=== PATIENT | male | born 1970 | race Two or more races ===

== ENCOUNTER 2024-01-28 12:42 | Emergency (ER) | payer OTHER ==
[~2024-01-28] VITALS: Ht 180.3 cm; Wt 88.5 kg
[2024-01-28] MEDS ORDERED: ROSUVASTATIN CAL5 MG PO (13:11)
[2024-01-28] MEDS ORDERED: LIPITOR40 M1 PO (13:12)
[2024-01-28] MEDS ORDERED: LISINOPRIL20 MG PO (13:13)
[2024-01-28 14:21] LABS: HEMATOCRIT 42.4 % (39.0-48.0); HEMOGLOBIN 14.4 g/dL (13-16.00); MEAN CELL VOLUME 92.3 fL (80.0-100.00); MEAN CORPUSCULAR HEMOGLOBIN 31.4 pg (27.00-32.0); PLATELET COUNT 144 K/uL (150-450); RED CELL DISTRIBUTION WIDTH 12.9 % (11.5-14.5)
[2024-01-28 14:48] LABS: CALCIUM 9.3 mg/dL (8.5-10.1); CREATININE SERUM 1.07 mg/dL (0.70-1.30); GFR 72.29; POTASSIUM 4.33 mEq/L (3.5-5.1)
[2024-01-28 16:18] LABS: URINE APPEARANCE Clear; URINE BILIRRUBIN Negative (NEGATIVE); URINE BLOOD Large; URINE COLOR Yellow; URINE GLUCOSE Negative (NEGATIVE); URINE KETONE Trace (NEGATIVE); URINE LEUKOCYTE Negative; URINE NITRATE Negative; URINE PROTEIN Negative (NEGATIVE); URINE UROBILINOGEN 0.2 E.U./dl
[2024-01-28 16:25] LABS: URINE EPITHELIAL CELLS 2.6 uL (0.0-38.8); URINE RBC 18.1 uL (0.0-20.8); URINE WBC 3.1 uL (0.0-23.2)
[2024-01-28 16:48] LABS: URINE BACTERIA 3.6 uL (0.0-1933); URINE CAST 0.14 uL (0.0-1.40)
== END 2024-01-28 16:31 | disposition home or self-care (01) ==
LOC: ER 12:44
PROVIDERS: General Practice
DX: K57.32 Diverticulitis of large intestine without perforation or abscess without bleeding (principal); R10.9 Unspecified abdominal pain; I10 Essential (primary) hypertension